=== PATIENT | female | born 1990 | race African-American/Black ===

== ENCOUNTER 2017-03-29 18:29 | Emergency (ER) | payer MEDICAID, OTHER ==
[~2017-03-29] VITALS: Ht 167.6 cm; Wt 63.5 kg
[2017-03-29 19:15] VITALS: BP 134/88
[2017-03-29 19:59] LABS: APPEARANCE,URINE SLIGHTLY CLOUDY; KETONES,URINE NEGATIVE (NEGATIVE); LEUKOCYTE ESTERASE ,URINE 1+ (NEGATIVE); NITRITE,URINE NEGATIVE (NEGATIVE); PH,URINE 8 (4.5-8.0); PROTEIN,URINE 3+ (NEGATIVE); UROBILINOGEN,URINE NORMAL MG/DL (0.0-1.0)
[2017-03-29 20:06] LABS: RBC,URINE TNTC /HPF (0 - 2)
[2017-03-29 20:07] LABS: BACTERIA,URINE FEW /HPF; SQUAMOUS EPITHELIAL CELL,UR OCCASIONAL /LPF (NONE/OCC)
[2017-03-29 21:00] VITALS: BP 128/81
--- NOTE | 2017-03-29 23:15 | Emergency Room Report ---
History of Present Illness General Chief Complaint: Alcohol Intoxication Source: EMS Present Illness Allergies: Coded Allergies: No Known Allergies (Unverified , 08/04/12) Patient History Last Menstrual Period: UNKNOWN Physical Exam Vital Signs Date Time Temp Pulse Resp B/P Pulse Ox O2 Delivery O2 Flow Rate FiO2 03/29/17 18:26 98.8 101 18 134/88 100 Room Air Medical Decision Making Diagnostic Impression: Primary Impression: Acute alcoholic intoxication Labs Test 03/29/17 19:30 Urine Color Pale yellow Urine Appearance Slightly cloudy Urine pH 8 (4.5-8.0) Urine Specific [place] 1.010 (1.005-1.035) Urine Protein 3+ (NEGATIVE) Urine Glucose (UA) Negative (NEGATIVE) Urine Ketones Negative (NEGATIVE) Urine Occult Blood 5+ (NEGATIVE) Urine Nitrite Negative (NEGATIVE) Urine Bilirubin Negative (NEGATIVE) Urine Urobilinogen Normal MG/DL (0.0-1.0) Urine Leukocyte Esterase 1+ (NEGATIVE) Urine RBC Tntc /HPF (0 - 2) Urine WBC 2-4 /HPF (0 - 2) Urine Squamous Epithelial Cells Occasional /LPF Urine Bacteria Few /HPF (NONE) Urine HCG, Qualitative Negative Urine Opiates Screen Negative (NEGATIVE) Urine Barbiturates Screen Negative (NEGATIVE) Phencyclidine (PCP) Screen Negative (NEGATIVE) Urine Amphetamines Screen Negative (NEGATIVE) Urine Benzodiazepines Screen Negative (NEGATIVE) Urine Cocaine Screen Negative (NEGATIVE) Urine Marijuana (THC) Screen Negative (NEGATIVE) Last Vital Signs Date Time Temp Pulse Resp B/P Pulse Ox O2 Delivery O2 Flow Rate FiO2 03/29/17 21:00 98.8 98 16 128/81 100 Room Air Disposition: HOME, SELF-CARE Condition: Stable Referrals: [facility],REFERRING (PCP) ELIZABETH GÓMEZ D.O. March 29, 2017 23:15
== END 2017-03-29 21:05 | disposition home or self-care (01) ==
LOC: EDBD 18:29 → EMR 21:01
DX: F10.129 Alcohol abuse with intoxication, unspecified (principal)
CPT/HCPCS: 80300; 81003; 81025; 99284